=== PATIENT | male | born 1950 | race Caucasian/White ===

== ENCOUNTER 2017-08-02 16:48 | Emergency (ER) | payer MEDICARE, OTHER ==
--- NOTE | 2017-08-02 17:13 | ED Physician Documentation ---
PD HPI CHEST PAIN - Stated complaint Stated Complaint: CHEST PX - History obtained from History obtained from: Patient - History of Present Illness Timing - onset: Today Timing - onset during: Other (started while riding his bike) Timing - duration: Hours (4) Timing - details: Abrupt onset Pain level max: 4 Pain level now: 2 Quality: Pressure Location: Substernal, Epigastric Radiation: Other (Nonradiating) Improved by: Nothing Worsened by: Inspiration. No: Exertion, Eating, Movement, Palpation, Position Associated symptoms: No: Shortness of air, Diaphoresis, Nausea, Vomiting, Feeling faint / dizzy, General Weakness, Palpitations, Cough Similar symptoms before: Has not had sx before Recently seen: Not recently seen - Additional information Additional information: recently returned from an international trip with several long airplane rides. Rides his bike 20-30 miles per day. Review of Systems Ten Systems: 10 systems reviewed and negative Constitutional: denies: Fever, Chills Ears: denies: Ear pain Nose: denies: Rhinorrhea / runny nose, Congestion Throat: denies: Sore throat Respiratory: denies: Cough GI: denies: Nausea, Vomiting, Diarrhea Skin: denies: Rash Musculoskeletal: denies: Neck pain, Back pain Neurologic: denies: Headache PD PAST MEDICAL HISTORY - Past Medical History Past Medical History: Yes - Past Surgical History Past Surgical History: No - Present Medications Home Medications: Ambulatory Orders Medication Instructions Recorded Confirmed Vardenafil HCl [Levitra] 0 mg PO PRN 08/02/17 Zolpidem [Ambien] 0 mg PRN 08/02/17 - Allergies Allergies/Adverse Reactions: Allergies Allergy/AdvReac Type Severity Reaction Status Date / Time No Known Drug Allergies Allergy Verified 08/02/17 17:51 - Living Situation Living Situation: reports: With family Living Arrangement: reports: At home - Social History Does the pt smoke?: No Does the pt drink ETOH?: Yes Does the pt have substance abuse?: No - Family History Family history: reports: Non contributory. denies: CAD PD ED PE NORMAL - Vitals Vital signs reviewed: Yes - General General: Alert and oriented X 3, No acute distress, Well developed/nourished - HEENT HEENT: PERRL, Ears normal, Moist mucous membranes, Pharynx benign - Neck Neck: Supple, no meningeal sign, No JVD, No bruit - Cardiac Cardiac: RRR, No murmur, Strong equal pulses - Respiratory Respiratory: No respiratory distress, Clear bilaterally - Abdomen Abdomen: Normal bowel sounds, Soft, Non tender, Non distended - Back Back: No spinal TTP - Derm Derm: Warm and dry, No rash - Extremities Extremities: No edema, No calf tenderness / cord - Neuro Neuro: Alert and oriented X 3 - Psych Psych: Normal mood, Normal affect Results - Vitals Vitals: Vital Signs - 24 hr 08/02/17 08/02/17 08/02/17 17:19 17:30 18:00 Temperature 36.8 C Heart Rate 94 60 58 L Respiratory 17 16 14 Rate Blood Pressure 131/69 H 143/71 H 143/78 H O2 Saturation 94 99 97 08/02/17 08/02/17 18:15 19:45 Temperature Heart Rate 57 L 56 L Respiratory 16 16 Rate Blood Pressure 136/72 H 138/71 H O2 Saturation 97 98 Oxygen O2 Source Room air - EKG (time done) 1705 Rate: Rate (enter#) (68) Rhythm: NSR [place]: Normal Intervals: Normal [place] QRS: Normal Ischemia: Normal ST segments, Q waves (II, III, aVF) Computer interpretation: Agree with computer - Labs Labs: Laboratory Tests 08/02/17 08/02/17 08/02/17 17:15 17:15 17:15 WBC 8.3 RBC 4.43 L Hgb 13.7 L Hct 39.9 L MCV 90.1 MCH 31.0 MCHC 34.4 RDW 13.0 Plt Count 225 MPV 7.5 Neut # 5.5 Lymph # 1.6 [place] # 0.7 Eos # 0.4 Baso # 0.1 Absolute Nucleated RBC 0.00 Nucleated RBC % 0.0 Sodium 138 Potassium 3.5 Chloride 103 Carbon Dioxide 26 Anion Gap 9.0 BUN 20 Creatinine 1.0 Estimated GFR (MDRD) 75 L Glucose 118 H Calcium 9.3 Total Bilirubin 0.5 AST 22 ALT 23 Alkaline Phosphatase 48 Troponin I < 0.04 Total Protein 6.4 L Albumin 3.8 Globulin 2.6 Albumin/Globulin Ratio 1.5 Lipase 28 08/02/17 19:14 WBC RBC Hgb Hct MCV MCH MCHC RDW Plt Count MPV Neut # Lymph # [place] # Eos # Baso # Absolute Nucleated RBC Nucleated RBC % Sodium Potassium Chloride Carbon Dioxide Anion Gap BUN Creatinine Estimated GFR (MDRD) Glucose Calcium Total Bilirubin AST ALT Alkaline Phosphatase Troponin I < 0.04 Total Protein Albumin Globulin Albumin/Globulin Ratio Lipase - Rads (name of study) CT PA Radiology: Prelim report reviewed, EMP read contemporaneously, See rad report ( normal, no PE.) PD MEDICAL DECISION MAKING - ED course Complexity details: reviewed results, re-evaluated patient, considered differential (No ST elevation DC, no aortic dissection, no PE, no tension pneumothorax, no aortic aneurysm), d/w patient ED course: Patient is a 66-year-old gentleman who presents to the emergency department with 4 hours worth of chest pain. No acute findings on EKG. Negative troponin 2. Negative CT pulmonary angiogram. Asymptomatic in the emergency department. We will have him start on aspirin daily and avoid strenuous activity until he follows up with his doctor for a cardiac stress test. Patient counseled regarding signs and symptoms for which I believe and urgent re -evaluation would be necessary. Patient with good understanding of and agreement to plan and is comfortable going home at this time This document was made in part using voice recognition software. While efforts are made to proofread this document, sound alike and grammatical errors may occur. HEART Score of 2 Departure - Departure Disposition: 01 Home, Self Care Clinical Impression: Chest pain Qualifiers: Chest pain type: unspecified Qualified Code(s): R07.9 - Chest pain, unspecified Condition: Good Instructions: ED Chest Pain Atypical Unkn Cause Follow-Up: Mohit Robles MD [Primary Care Provider] - Within 3 Days (for cardiac stress test) Comments: Return if you worsen. The cause of your pain is unclear today. Follow up with your doctor for a cardiac stress test. You should also start on a baby aspirin daily until your stress test and avoid strenuous activity. Discharge Date/Time: 08/02/17 20:03
[2017-08-02] MEDS ORDERED: IOPAMIDOL-300 100 ML VIAL ONE (17:32)
[2017-08-02 17:35] LABS: BASOPHILS # (AUTO) 0.1 10^3/uL (0.0-0.1); BASOPHILS % (AUTO) 1.1 %; EOSINOPHILS # (AUTO) 0.4 10^3/uL (0.0-0.7); EOSINOPHILS % (AUTO) 4.8 %; HCT - HEMATOCRIT 39.9 % (42.0-52.0); HGB - HEMOGLOBIN 13.7 g/dL (14.0-18.0); LYMPHOCYTES # (AUTO) 1.6 10^3/uL (1.5-3.5); LYMPHOCYTES % (AUTO) 19.7 %; MEAN CORPUSCULAR HGB CONC 34.4 g/dL (32.0-36.0); MEAN CORPUSCULAR VOLUME 90.1 fL (80.0-94.0); MEAN PLATELET VOLUME 7.5 fL (7.4-11.4); MONOCYTES # (AUTO) 0.7 10^3/uL (0.0-1.0); MONOCYTES % (AUTO) 8.3 %; NEUTROPHILS # (AUTO) 5.5 10^3/uL (1.5-6.6); NEUTROPHILS % (AUTO) 66.1 %; RED BLOOD COUNT 4.43 10^6/uL (4.70-6.10); UNCORRECTED WHITE BLOOD COUNT 8.3 x10^3/uL; WHITE BLOOD COUNT 8.3 x10^3/uL (4.8-10.8)
[2017-08-02 17:44] LABS: ALBUMIN/GLOBULIN RATIO 1.5 (1.0-2.2); BILIRUBIN,TOTAL 0.5 mg/dL (0.2-1.0); CALCIUM 9.3 mg/dL (8.5-10.3); POTASSIUM 3.5 mmol/L (3.5-5.0); TOTAL PROTEIN 6.4 g/dL (6.7-8.2)
[2017-08-02] MEDS ORDERED: IOPAMIDOL-300 100 ML VIAL IVP ONE (18:16)
--- NOTE | 2017-08-02 18:51 | CT Preliminary Report ---
Exam: CT CHEST ANGIO (PE) IMPRESSION: Normal pulmonary CT angiogram. No pulmonary emboli. [facility] SITE ID: [id number]
--- NOTE | 2017-08-02 19:13 | CT Report ---
EXAM: CT ANGIOGRAM CHEST EXAM DATE: 08/02/2017 06:02 PM. CLINICAL HISTORY: Chest pain, recent international travel. COMPARISON: None. TECHNIQUE: Routine helical imaging was performed through the chest in the pulmonary arterial phase. I V Contrast: 80 mL of Isovue 300. Reconstructions: Coronal 3-D MIP reconstructions.Sagittal and flower l. In accordance with CT protocol optimization, one or more of the following dose reduction techniques w ere utilized for this exam: automated exposure control, adjustment of mA and/or KV based on patient s ize, or use of iterative reconstructive technique. FINDINGS: Pulmonary Arteries: Diagnostic quality: Adequate through the segmental arteries. No evidence for acute or chronic pulmona ry emboli. RV/LV is within normal limits. There is no interventricular septal bowing. There is no reflux of cont rast material in the IVC. Lungs/Pleura: No consolidation, nodules, or edema. No effusions or pneumothorax. Superior-lateral ave cified right upper lobe nodule. Mediastinum: Normal. No cardiac enlargement or adenopathy. Thoracic Aorta: Unremarkable. Upper Abdomen: 1.8 cm cyst in the dome of the liver. Other: None. IMPRESSION: Normal pulmonary CT angiogram. No pulmonary emboli. [facility] Referring Provider Line: [phone] SITE ID: [id number]
[2017-08-02 20:03] VITALS: BP 138/71
== END 2017-08-02 20:03 | disposition home or self-care (01) ==
LOC: ED 16:48
DX: R07.9 Chest pain, unspecified (principal); R94.31 Abnormal electrocardiogram [ECG] [EKG]
CPT/HCPCS: 36415; 71275; 80053; 83690; 84484; 85025; 93005; 99283; 99284

== ENCOUNTER 2020-09-07 10:30 | Outpatient (CLI) | payer MEDICARE, OTHER ==
[2020-09-07 15:33] LABS: LEUKOCYTE ESTERASE, URINE LARGE (NEGATIVE); NITRITE,URINE POSITIVE (NEGATIVE); OCCULT BLOOD,URINE LARGE (NEGATIVE)
[2020-09-07 15:40] LABS: BILIRUBIN,URINE NEGATIVE (NEGATIVE); CLARITY,URINE CLOUDY (CLEAR); ICTOTEST,URINE NEGATIVE
[2020-09-07 15:41] LABS: AMORPHOUS SEDIMENT,UR Rare /LPF; BACTERIA,URINE Many /HPF (None Seen); RBC,URINE TNTC /HPF (0-5); SQUAMOUS EPITHELIAL CELL,UR NONE SEEN (<= Few)
== END 2020-09-07 23:59 | disposition home or self-care (01) ==
LOC: LAB.R 10:30
PROVIDERS: ATTEND Physician Assistant Medical
DX: N39.0 Urinary tract infection, site not specified (principal)
CPT/HCPCS: 81001; 87086; 87181

== ENCOUNTER 2020-10-05 08:00 | Outpatient (CLI) | payer MEDICARE, OTHER | END 2020-10-05 23:59 | disposition home or self-care (01) | LOC: LAB.R 08:00 | PROVIDERS: ATTEND Physician Assistant Medical | DX: R31.0 Gross hematuria (principal) | CPT/HCPCS: 87086; 87181 ==

== ENCOUNTER 2020-10-19 09:41 | Outpatient (CLI) | payer MEDICARE, OTHER ==
[2020-10-19 15:33] LABS: BASOPHILS # (AUTO) 0.1 10^3/uL (0.0-0.1); BASOPHILS % (AUTO) 1.1 %; EOSINOPHILS # (AUTO) 0.3 10^3/uL (0.0-0.7); EOSINOPHILS % (AUTO) 3.9 %; HGB - HEMOGLOBIN 13.4 g/dL (14.0-18.0); LYMPHOCYTES # (AUTO) 1.5 10^3/uL (1.5-3.5); LYMPHOCYTES % (AUTO) 23.6 %; MEAN CORPUSCULAR HEMOGLOBIN 29.6 pg (27.0-31.0); MEAN CORPUSCULAR HGB CONC 32.4 g/dL (32.0-36.0); MEAN CORPUSCULAR VOLUME 91.6 fL (80.0-94.0); MEAN PLATELET VOLUME 9.2 fL (7.4-11.4); MONOCYTES # (AUTO) 0.5 10^3/uL (0.0-1.0); NEUTROPHILS # (AUTO) 4.1 10^3/uL (1.5-6.6); NEUTROPHILS % (AUTO) 63.9 %; PLT - PLATELET COUNT 334 10^3/uL (130-450); RED BLOOD COUNT 4.52 10^6/uL (4.70-6.10); RED CELL DISTRIBUTION WIDTH 12.9 % (12.0-15.0); WHITE BLOOD COUNT 6.4 x10^3/uL (4.8-10.8)
[2020-10-19 16:02] LABS: ALBUMIN/GLOBULIN RATIO 1.5 (1.0-2.2); ALKALINE PHOSPHATASE 51 IU/L (42-121); ALT ALANINE AMINOTRANSFERASE 26 IU/L (10-60); AST ASPARTATE AMINOTRANSFERASE 25 IU/L (10-42); BILIRUBIN,TOTAL 1.1 mg/dL (0.2-1.0); BUN - BLOOD UREA NITROGEN 16 mg/dL (6-20); CALCIUM 9.1 mg/dL (8.5-10.3); CARBON DIOXIDE - CO2 29 mmol/L (21-32); CHLORIDE 102 mmol/L (101-111); CHOL/HDL RATIO 2.9 (<5.0); CHOLESTEROL 182 mg/dL; CREATININE 0.7 mg/dL (0.6-1.2); GLUCOSE 96 mg/dL (70-100); HDL CHOLESTEROL 63 mg/dL; LDL CHOLESTEROL,CALCULATED 108 mg/dL; LDL/HDL RATIO 1.7 (<3.6); SODIUM 136 mmol/L (135-145); TOTAL PROTEIN 6.7 g/dL (6.7-8.2); VLDL CHOLESTEROL 11 mg/dL
== END 2020-10-19 09:42 | disposition home or self-care (01) ==
LOC: LAB.S 09:41
PROVIDERS: ATTEND Internal Medicine
DX: E78.5 Hyperlipidemia, unspecified (principal); N41.9 Inflammatory disease of prostate, unspecified; Z79.899 Other long term (current) drug therapy
CPT/HCPCS: 36415; 80053; 80061; 83721; 84153; 85025

== ENCOUNTER 2021-04-05 06:43 | Emergency (ER) | payer MEDICARE, OTHER ==
[2021-04-05] MEDS ORDERED: MORPHINE 10 MG/ML VIAL IVP STA (07:14)
[2021-04-05] MEDS ORDERED: ONDANSETRON 4 MG/2 ML VIAL IVP STA (07:14)
[2021-04-05] MEDS ORDERED: SODIUM CHLORIDE 0.9% 1,000 ML IV STA (07:14)
[2021-04-05 07:30] LABS: BASOPHILS # (AUTO) 0.1 10^3/uL (0.0-0.1); BASOPHILS % (AUTO) 1.3 %; EOSINOPHILS # (AUTO) 0.5 10^3/uL (0.0-0.7); EOSINOPHILS % (AUTO) 6.2 %; HCT - HEMATOCRIT 41.1 % (42.0-52.0); HGB - HEMOGLOBIN 13.9 g/dL (14.0-18.0); LYMPHOCYTES # (AUTO) 2.3 10^3/uL (1.5-3.5); LYMPHOCYTES % (AUTO) 29.1 %; MEAN CORPUSCULAR HGB CONC 33.8 g/dL (32.0-36.0); MEAN CORPUSCULAR VOLUME 91.5 fL (80.0-94.0); MEAN PLATELET VOLUME 9.1 fL (7.4-11.4); MONOCYTES # (AUTO) 0.6 10^3/uL (0.0-1.0); MONOCYTES % (AUTO) 8.1 %; NEUTROPHILS # (AUTO) 4.4 10^3/uL (1.5-6.6); NEUTROPHILS % (AUTO) 54.9 %; PLT - PLATELET COUNT 305 10^3/uL (130-450); RED BLOOD COUNT 4.49 10^6/uL (4.70-6.10); RED CELL DISTRIBUTION WIDTH 12.6 % (12.0-15.0); WHITE BLOOD COUNT 7.9 x10^3/uL (4.8-10.8)
[2021-04-05] MEDS ORDERED: IOVERSOL 320 100 ML VIAL IVP ONE ×2 (07:39→10:26)
[2021-04-05] MEDS ORDERED: HYDROmorphone 1 MG/ML CARPUJECT IVP STA ×2 (07:56→10:05)
--- NOTE | 2021-04-05 07:59 | ED Physician Documentation ---
History of Present Illness - Stated complaint Stated Complaint: ABD PX - Chief complaint Chief Complaint: Abd Pain - History obtained from History obtained from: Patient - Additonal information Additional information: 70-year-old man with past medical history of alcohol abuse, kidney stones without prior surgical history presents with sudden onset right lower quadrant pain radiating from the right flank that is sharp, started suddenly an hour prior to arrival, constant, associated with nonbloody nonbilious nausea and vomiting. He had been feeling fine prior and had some alcohol last night.Also with dysuria but no increased frequency, no fever. No diarrhea Review of Systems Ten Systems: 10 systems reviewed and negative Constitutional: denies: Fever, Chills GI: reports: Abdominal Pain, Nausea, Vomiting. denies: Diarrhea : reports: Dysuria Musculoskeletal: reports: Back pain PD PAST MEDICAL HISTORY - Past Surgical History Past Surgical History: No General: Other Ortho: Arthroscopic surgery HEENT: Cataracts, Detached retina repair - Present Medications Home Medications: Ambulatory Orders Medication Instructions Recorded Confirmed Vardenafil HCl [Levitra] 0 mg PO PRN 08/02/17 Zolpidem [Ambien] 0 mg PRN 08/02/17 Oxycodone HCl/Acetaminophen 1 each PO Q4H PRN #10 tablet 04/05/21 [Percocet 10-325 mg Tablet] Tamsulosin [Flomax] 0.4 mg PO DAILY 14 Days #14 tab 04/05/21 - Allergies Allergies/Adverse Reactions: Allergies Allergy/AdvReac Type Severity Reaction Status Date / Time No Known Drug Allergies Allergy Verified 08/02/17 17:51 - Social History Does the pt smoke?: No Smoking Status: Never smoker Does the pt drink ETOH?: Yes Does the pt have substance abuse?: No - POLST Patient has POLST: No PD ED PE NORMAL - Vitals Vital signs reviewed: Yes - General General: Alert and oriented X 3, Other (Uncomfortable appearing, actively retching) - HEENT HEENT: Atraumatic, PERRL, EOMI - Neck Neck: Supple, no meningeal sign - Cardiac Cardiac: RRR - Respiratory Respiratory: No respiratory distress, Clear bilaterally - Abdomen Abdomen: Non tender, Non distended, Other (Right lower quadrant tender to palpation) - Back Back: Other (Discomfort to right CVA palpation) - Derm Derm: Normal color, Warm and dry - Extremities Extremities: No deformity - Neuro Neuro: Alert and oriented X 3 - Psych Psych: Normal mood, Normal affect Results - Vitals Vitals: Vital Signs - 24 hr 04/05/21 04/05/21 04/05/21 06:53 08:45 10:22 Temperature 37.2 C 36.2 C L Heart Rate 58 L 63 666 H Respiratory 20 16 17 Rate Blood Pressure 153/84 H 163/87 H 181/90 H O2 Saturation 97 97 97 Oxygen O2 Source Room air - Labs Labs: Laboratory Tests 04/05/21 04/05/21 04/05/21 07:10 07:10 09:28 WBC 7.9 RBC 4.49 L Hgb 13.9 L Hct 41.1 L MCV 91.5 MCH 31.0 MCHC 33.8 RDW 12.6 Plt Count 305 MPV 9.1 Neut # (Auto) 4.4 Lymph # (Auto) 2.3 [place] # (Auto) 0.6 Eos # (Auto) 0.5 Baso # (Auto) 0.1 Absolute Nucleated RBC 0.00 Nucleated RBC % 0.0 Sodium 136 Potassium 3.7 Chloride 103 Carbon Dioxide 24 Anion Gap 9.0 BUN 18 Creatinine 1.0 Estimated GFR (MDRD) 74 L Glucose 172 H Calcium 8.9 Total Bilirubin 1.0 AST 26 ALT 26 Alkaline Phosphatase 51 Total Protein 6.8 Albumin 4.1 Globulin 2.7 Albumin/Globulin Ratio 1.5 Lipase 35 Urine Color YELLOW Urine Clarity CLEAR Urine pH 7.5 Ur Specific [place] 1.020 Urine Protein NEGATIVE Urine Glucose (UA) NEGATIVE Urine Ketones 15 H Urine Occult Blood SMALL H Urine Nitrite NEGATIVE Urine Bilirubin NEGATIVE Urine Urobilinogen 0.2 (NORMAL) Ur Leukocyte Esterase NEGATIVE Urine RBC 6-10 H Urine WBC 0-3 Ur Squamous Epith Cells RARE Squamous Urine Bacteria None Seen Ur Microscopic Review INDICATED Urine Culture Comments NOT INDICATED PD MEDICAL DECISION MAKING - ED course ED course: 70-year-old man with past medical history of kidney stones presents with sudden onset abdominal and flank pain. Will obtain CT to evaluate for appendicitis, aneurysm, kidney stones. , etc Differential considered. Impression 1. kidney stone Departure - Departure Disposition: 01 Home, Self Care Condition: Good Instructions: Kidney Stones Prescriptions: Tamsulosin [Flomax] 0.4 mg PO DAILY 14 Days #14 tab Oxycodone HCl/Acetaminophen [Percocet 10-325 mg Tablet] 1 each PO Q4H PRN #10 tablet PRN Reason: Pain Comments: You were seen in the emergency procedure department for kidney stones. You have a 5 mm stone that is either about to get into the bladder or has needed into the bladder. It is on the right side where you are having pain. Your kidney function and urine tests were normal. Please follow-up with urology and return to the emergency department if you have any new or worsening symptoms or other concerns.
[2021-04-05 08:03] LABS: ALBUMIN 4.1 g/dL (3.2-5.5); ALBUMIN/GLOBULIN RATIO 1.5 (1.0-2.2); CALCIUM 8.9 mg/dL (8.5-10.3); POTASSIUM 3.7 mmol/L (3.5-5.0); TOTAL PROTEIN 6.8 g/dL (6.7-8.2)
[2021-04-05 09:38] LABS: BILIRUBIN,URINE NEGATIVE (NEGATIVE); GLUCOSE, URINE (UA) NEGATIVE (NEGATIVE); KETONES,URINE (UA) 15 mg/dL (NEGATIVE); LEUKOCYTE ESTERASE, URINE NEGATIVE (NEGATIVE); NITRITE,URINE NEGATIVE (NEGATIVE); OCCULT BLOOD,URINE SMALL (NEGATIVE); PH,URINE 7.5 PH (5.0-7.5); PROTEIN,URINE NEGATIVE (NEGATIVE); UROBILINOGEN,URINE 0.2 (NORMAL) E.U./dL (NORMAL)
[2021-04-05 09:41] LABS: CLARITY,URINE CLEAR (CLEAR)
[2021-04-05 09:45] LABS: WBC,URINE 0-3 /HPF (0-3)
[2021-04-05 09:46] LABS: BACTERIA,URINE None Seen /HPF (None Seen); SQUAMOUS EPITHELIAL CELL,UR RARE Squamous (<= Few)
[2021-04-05 12:09] VITALS: BP 134/71
--- NOTE | 2021-04-05 12:17 | CT Report ---
PROCEDURE: Abdomen/Pelvis W INDICATIONS: Abdominal pain, acute, nonlocalized CONTRAST: IV CONTRAST: Optiray 320 ml: 100 PO CONTRAST: *NO PO CONTRAST TECHNIQUE: After the administration of intravenous contrast, 5 mm thick sections acquired from the diaphragms to the symphysis. 5 mm thick coronal and sagittal reformats were acquired. For radiation dose reducti on, the following was used: automated exposure control, adjustment of mA and/or kV according to charissa ent size. COMPARISON: None. FINDINGS: Image quality: Excellent. ABDOMEN: Lung bases: Lung bases are clear. Heart size is normal. Solid organs: Liver and spleen are normal in size . Low-attenuation focus is present within the hepa tic dome measuring 2 cm, Hounsfield units measuring 5. Gallbladder is unremarkable Biliary system i s non dilated. Pancreas enhances normally. No adrenal nodules. Kidneys demonstrate normal size and enhancement. There is minimal to mild right hydronephrosis and slight right perinephric stranding. L eft renal cysts are noted. Peritoneum and bowel: Bowel loops demonstrate normal wall thickness and caliber. No free fluid or a ir. Nodes and vessels: No retroperitoneal or mesenteric adenopathy by size criteria. Aorta and inferior vena cava are normal in size. Miscellaneous: No ventral hernias. PELVIS: Genitourinary: Bladder wall thickness is normal. Calcification is noted within the posterior inferi or bladder measuring approximately 4 mm. Miscellaneous: No inguinal hernias or adenopathy. Bones: No suspicious bony lesions. No vertebral body compression fractures. IMPRESSION: 1. 4 mm calcification within the posterior inferior bladder along with mild stranding of the right ki dney and minimal to mild right hydronephrosis suggestive of recently passed stone. Reviewed by: Aura Louie MD on 04/05/2021 12:16 PM PDT Approved by: Aura Louie MD on 04/05/2021 12:16 PM PDT Station ID: [id number]
== END 2021-04-05 12:10 | disposition home or self-care (01) ==
LOC: ED 06:43
DX: N13.2 Hydronephrosis with renal and ureteral calculous obstruction (principal)
CPT/HCPCS: 36415; 74177; 80053; 81001; 83690; 85025; 96361; 96374; 96375; 96376; 99284; J1170; Q9967; 81003; 87086

== ENCOUNTER 2022-08-31 16:16 | Outpatient (CLI) | payer MEDICARE, OTHER ==
--- NOTE | 2022-08-31 17:01 | XRAY Report ---
PROCEDURE: Chest 2 View X-Ray INDICATIONS: COUGH TECHNIQUE: 2 views of the chest were acquired. COMPARISON: CTA chest 08/02/2017. FINDINGS: Surgical changes and devices: None. Lungs and pleura: No pleural effusions or pneumothorax. Lungs are clear. Right upper lobe calcified granuloma. Mediastinum: Mediastinal contours are normal. Heart size is normal. Bones and chest wall: No suspicious bony abnormalities. Soft tissues appear unremarkable. IMPRESSION: No acute cardiopulmonary abnormality. Reviewed by: Bruce Mathew MD on 08/31/2022 5:00 PM PST Approved by: Bruce Mathew MD on 08/31/2022 5:00 PM [facility] Station ID: [id number]
== END 2022-08-31 16:17 | disposition home or self-care (01) ==
LOC: DI.S 16:16
PROVIDERS: ATTEND Registered Nurse
DX: R05.9 Cough, unspecified (principal)

== ENCOUNTER 2022-11-28 14:20 | Outpatient (CLI) | payer MEDICARE, OTHER ==
[2022-11-28 19:35] LABS: CALCIUM 8.9 mg/dL (8.5-10.3); CREATININE 0.8 mg/dL (0.6-1.2); POTASSIUM 4.2 mmol/L (3.5-5.0)
[2022-11-28 19:42] LABS: ALBUMIN 3.7 g/dL (3.2-5.5); BILIRUBIN,DIRECT 0.1 mg/dL (0.1-0.5); BILIRUBIN,TOTAL 0.5 mg/dL (0.2-1.0); TOTAL PROTEIN 6.3 g/dL (6.7-8.2)
== END 2022-11-28 14:21 | disposition home or self-care (01) ==
LOC: LAB.S 14:20
PROVIDERS: ATTEND Internal Medicine
DX: E87.5 Hyperkalemia (principal); B35.1 Tinea unguium
CPT/HCPCS: 36415; 80048; 80076

== ENCOUNTER 2023-01-17 13:06 | Outpatient (CLI) | payer MEDICARE, OTHER ==
[2023-01-17 15:17] LABS: ALBUMIN 3.9 g/dL (3.2-5.5); BILIRUBIN,DIRECT 0.1 mg/dL (0.1-0.5); BILIRUBIN,TOTAL 0.7 mg/dL (0.2-1.0); TOTAL PROTEIN 6.7 g/dL (6.7-8.2)
== END 2023-01-17 13:07 | disposition home or self-care (01) ==
LOC: LAB.S 13:06
PROVIDERS: ATTEND Physician Assistant Medical
DX: B35.1 Tinea unguium (principal)
CPT/HCPCS: 36415; 80076

== ENCOUNTER 2023-02-16 14:14 | Outpatient (CLI) | payer MEDICARE, OTHER ==
[2023-02-16 19:47] LABS: BASOPHILS # (AUTO) 0.1 10^3/uL (0.0-0.1); BASOPHILS % (AUTO) 0.8 %; EOSINOPHILS # (AUTO) 0.1 10^3/uL (0.0-0.7); EOSINOPHILS % (AUTO) 1.3 %; HCT - HEMATOCRIT 40.5 % (42.0-52.0); HGB - HEMOGLOBIN 13.3 g/dL (14.0-18.0); LYMPHOCYTES # (AUTO) 1.6 10^3/uL (1.5-3.5); LYMPHOCYTES % (AUTO) 17.7 %; MEAN CORPUSCULAR HEMOGLOBIN 30.3 pg (27.0-31.0); MEAN CORPUSCULAR HGB CONC 32.8 g/dL (32.0-36.0); MEAN CORPUSCULAR VOLUME 92.3 fL (80.0-94.0); MONOCYTES # (AUTO) 0.6 10^3/uL (0.0-1.0); MONOCYTES % (AUTO) 6.1 %; NEUTROPHILS # (AUTO) 6.7 10^3/uL (1.5-6.6); NEUTROPHILS % (AUTO) 73.6 %; PLT - PLATELET COUNT 308 10^3/uL (130-450); RED BLOOD COUNT 4.39 10^6/uL (4.70-6.10); RED CELL DISTRIBUTION WIDTH 12.7 % (12.0-15.0); WHITE BLOOD COUNT 9.2 x10^3/uL (4.8-10.8)
[2023-02-16 20:13] LABS: ALBUMIN 3.8 g/dL (3.2-5.5); ALBUMIN/GLOBULIN RATIO 1.4 (1.0-2.2); BILIRUBIN,TOTAL 0.6 mg/dL (0.2-1.0); CREATININE 0.8 mg/dL (0.6-1.2); POTASSIUM 3.7 mmol/L (3.5-5.0); TOTAL PROTEIN 6.5 g/dL (6.7-8.2)
== END 2023-02-16 14:15 | disposition home or self-care (01) ==
LOC: LAB.S 14:14
PROVIDERS: ATTEND Physician Assistant Medical
DX: R21 Rash and other nonspecific skin eruption (principal)
CPT/HCPCS: 36415; 80053; 85025

== ENCOUNTER 2023-02-21 11:43 | Outpatient (CLI) | payer MEDICARE, OTHER ==
[2023-02-21 14:58] LABS: % IRON SATURATION 38 % (20-50); IRON 128 ug/dL (45-182); TOTAL IRON BINDING CAPACITY 339 ug/dL (250-450); TRANSFERRIN 242 mg/dL (180-329)
[2023-02-21 15:12] LABS: FERRITIN 30.9 ng/mL (23.9-336.2)
[2023-02-21 15:14] LABS: FOLATE 15.91 ng/mL (5.90 - >24.8)
== END 2023-02-21 11:44 | disposition home or self-care (01) ==
LOC: LAB.S 11:43
PROVIDERS: ATTEND Internal Medicine
DX: D64.9 Anemia, unspecified (principal)
CPT/HCPCS: 36415; 82607; 82728; 82746; 83540; 84466